=== PATIENT | female | born 1965 | race Caucasian/White ===

== ENCOUNTER 2017-12-06 07:10 | Emergency (ER) | payer BC ==
[2017-12-06 07:31] VITALS: BP 123/78
--- NOTE | 2017-12-06 08:12 | UC ---
Skin Complaint HPI - HPI Summary HPI Summary: has had 1 wek history small bump on lower mid back, over past 3 days it has become red and swollen, very painful, no drainage - History of Current Complaint Chief Complaint: UCSkin Time Seen by Provider: 12/06/17 08:04 Stated Complaint: SKIN ISSUE Hx Obtained From: Patient ?: No Onset/Duration: Gradual Onset Onset Severity: Mild Current Severity: Moderate Pain Intensity: 7 Location: Discrete Character: Swelling, Redness, Painful Aggravating Factor(s): Touch Alleviating Factor(s): Nothing Associated Signs & Symptoms: Positive: Negative Similar Episode/Dx as: abscess - Allergy/Home Medications Allergies/Adverse Reactions: Allergies Allergy/AdvReac Type Severity Reaction Status Date / Time statins Allergy Pain Uncoded 12/06/17 07:20 Home Medications: Home Medications Sertraline* [Zoloft*] 50 mg PO DAILY 12/06/17 [History Confirmed 12/06/17] diphenhydrAMINE HCl [Benadryl Allergy] 25 mg PO BEDTIME PRN 12/06/17 [History Confirmed 12/06/17] Review of Systems Constitutional: Negative Respiratory: Negative Cardiovascular: Negative Musculoskeletal: Negative Neurological: Negative Psychological: Negative Is Patient Immunocompromised?: No All Other Systems Reviewed And Are Negative: Yes PMH/Surg Hx/FS Hx/Imm Hx Previously Healthy: Yes Endocrine History: Dyslipidemia Psychological History: Depression - Surgical History Surgical History: Yes Surgery Procedure, Year, and Place: C SECTION - 1993; ANKLE-Lt Xs2- WEREN'T ABLE TO REMOVE HARDWARE; TONSILECTOMY - Family History Known Family History: Positive: None Negative: Hypertension, Diabetes - Social History Occupation: Employed Full-time Lives: With Family Alcohol Use: None Substance Use Type: None Smoking Status (MU): Current Every Day Smoker Cessation Counseling: Patient Advised to Stop Physical Exam Triage Information Reviewed: Yes Appearance: Well-Appearing, No Pain Distress, Well-Nourished Vital Signs: Initial Vital Signs Temp 98.2 F 12/06/17 07:22 Pulse 81 12/06/17 07:22 Resp 16 12/06/17 07:22 BP 123/78 12/06/17 07:22 Pulse Ox 99 12/06/17 07:22 Vital Signs Reviewed: Yes Respiratory Exam: Normal Cardiovascular Exam: Normal Musculoskeletal Exam: Normal Neurological Exam: Normal Psychological Exam: Normal Skin: Positive: Other - 2cm erythemic, raise, painful mass without fluctuant area or pustule saccral area Course/Dx - Differential Diagnoses - Skin Complaint Differential Diagnoses: Abscess, Cellulitis, MRSA - Diagnoses Provider Diagnoses: skin abscess Discharge - Sign-Out/Discharge Documenting (check all that apply): Patient Departure All imaging exams completed and their final reports reviewed: No Studies - Discharge Plan Condition: Good Disposition: HOME Prescriptions: Sulfamethox/Trimethoprim DS* [Bactrim DS 800/160 TAB*] 1 tab PO BID #20 tab Patient Education Materials: Abscess (ED) Referrals: Willam Dupree MD [Primary Care Provider] - 3 Days (if no better) Additional Instructions: apply warm packs to abscess 3-4 times a day use Hibiclens solution everyday to affected area start antibiotic and take as directed return if you experience fever or chills or worsening symptoms - Billing Disposition and Condition Condition: GOOD Disposition: Home - Attestation Statements Provider Attestation: Per institutional requirements, I have reviewed the chart, however, I was not consulted specifically or made aware of this patient by the midlevel provider. I did not personally evaluate, interact with , or disposition this patient.
== END 2017-12-06 08:30 | disposition home or self-care (01) ==
LOC: UCEAST 07:10
DX: L02.212 Cutaneous abscess of back [any part, except buttock and flank] (principal); F32.9 Major depressive disorder, single episode, unspecified; Z88.8 Allergy status to other drugs, medicaments and biological substances; F17.210 Nicotine dependence, cigarettes, uncomplicated
CPT/HCPCS: 99212; G0463

== ENCOUNTER 2017-12-08 15:30 | Emergency (ER) | payer BC ==
[2017-12-08 16:08] VITALS: BP 109/73
[2017-12-08] MEDS ORDERED: Lidocaine 2% W/EPI 1:100,000* 20 ML MDV INJ ONE (17:07)
[2017-12-08] MEDS ORDERED: Lidocaine 1% MPF wEPI 200,000* 30 ML SDV ONE (17:09)
--- NOTE | 2017-12-08 17:13 | ED ---
Skin Complaint - HPI Summary HPI Summary: 52-year-old female presents for abscess to her sacral area. She was seen at this facility on 12/06/2017 for the same. There was no fluctuance at that time therefore an I&D was not performed. Patient was placed on Bactrim twice a day. Patient presents today reporting that the abscess has come to a head with increased redness and tenderness. Denies fever or chills. - History of Current Complaint Chief Complaint: UCSkin Time Seen by Provider: 12/08/17 16:27 Stated Complaint: ABCESS ON TAILBONE Hx Obtained From: Patient Onset/Duration: Started Days Ago - 5 Timing: Constant Onset Severity: Mild Current Severity: Severe Pain Intensity: 9 Skin Location: Other: - over coccyx Character: Redness, Raised, Painful Aggravating Symptom(s): Touch Alleviating Symptom(s): Nothing Associated Signs & Symptoms: Chills, Tenderness - Allergy/Home Medications Allergies/Adverse Reactions: Allergies Allergy/AdvReac Type Severity Reaction Status Date / Time statins Allergy Pain Uncoded 12/08/17 16:08 PMH/Surg Hx/FS Hx/Imm Hx Endocrine/Hematology History: Denies: Hx Diabetes, Hx Thyroid Disease Cardiovascular History: Denies: Hx Hypertension, Hx Pacemaker/ICD Respiratory History: Denies: Hx Asthma, Hx Chronic Obstructive Pulmonary Disease (COPD) GI History: Reports: Hx Ulcer, Other GI Disorders - STOMACH ULCER History: Denies: Hx Dialysis, Hx Renal Disease Sensory History: Denies: Hx Hearing Aid Psychiatric History: Denies: Hx Panic Disorder - Cancer History Hx Chemotherapy: No Hx Radiation Therapy: No - Surgical History Surgery Procedure, Year, and Place: C SECTION - 1993; ANKLE-Lt Xs2- WEREN'T ABLE TO REMOVE HARDWARE; TONSILECTOMY Hx Anesthesia Reactions: No Infectious Disease History: No Infectious Disease History: Denies: Hx Hepatitis, Hx Human Immunodeficiency Virus (HIV), Traveled Outside the [place] in Last 30 Days - Family History Family History: Noncontributory - Social History Occupation: Employed Full-time Lives: With Family Alcohol Use: None Substance Use Type: Reports: None Smoking Status (MU): Current Every Day Smoker Review of Systems Positive: Chills Positive: Other - See HPI All Other Systems Reviewed And Are Negative: Yes Physical Exam Triage Information Reviewed: Yes Vital Signs On Initial Exam: Initial Vitals Temp Pulse Resp BP Pulse Ox 99.7 F 105 18 109/73 97 12/08/17 16:03 12/08/17 16:03 12/08/17 16:03 12/08/17 16:03 12/08/17 16:03 Vital Signs Reviewed: Yes Appearance: Positive: Well-Appearing, Well-Nourished, Pain Distress - Unable to find comfortable position Skin: Positive: Warm, Dry, Other - 3.5 cm circular area of induration with central fluctuance to sacrum. Erythema extends beyond the margins of induration for total of 8 cm in diameter. Respiratory/Lung Sounds: Positive: Clear to Auscultation, Breath Sounds Present Cardiovascular: Positive: Normal Musculoskeletal: Positive: Normal Psychiatric: Positive: Normal Procedures - Incision and Drainage Midline Sacrum Site: sacrum Anesthesia: Local - Field block performed using 9 ml 2% lidocaine with epi. Good anesthesia was acheived Instrument(s): Scalpel - 1.5 cm incision made in the area of fluctuance. Wound culture obtained. Wound was probed to a depth of 1.5 cm and tunneled 2.5 cm laterally to the left of the sacrum. Loculations were broken up using a forcep. Moderate amount of purulent drainage expressed from wound. Irrigated with copious amount of sterile saline. Packing: Gauze - Wound packed with iodoform guaze. Bulky gauze dressing applied. Diagnostics - Vital Signs Vital Signs Temp Pulse Resp BP Pulse Ox 12/08/17 16:03 99.7 F 105 18 109/73 97 - Laboratory Lab Statement: Any lab studies that have been ordered have been reviewed, and results considered in the medical decision making process. Course/Dx - Course Course Of Treatment: 52 year old female presents with sacral abscess. Seen previously at this facility for same however lesion was without fluctuance therefore I&D defferred. Started on Bactrim DS. Lesion has increased in size and now has central area of fluctuance. I&D was performed and wound was packed. Will have patient continue with Bactrim DS as prescribed pending culture results. She has appointment already scheduled with PCP in 2 days. Warning symptoms reviewed with patient. Verbalizes understanding and agrees with POC. - Differential Diagnoses - Skin Complaint Differential Diagnoses: Abscess - coccyx - Diagnoses Provider Diagnoses: Abscess Discharge - Sign-Out/Discharge Documenting (check all that apply): Patient Departure All imaging exams completed and their final reports reviewed: No Studies - Discharge Plan Condition: Stable Disposition: HOME Patient Education Materials: Abscess (ED) Referrals: Willam Dupree MD [Primary Care Provider] - 2 Days (As scheduled.) Additional Instructions: The numbing medication used during the procedure today will wear off in about 2- 3 hours. He may take an alrk-neg-lhtlyet pain medication such as acetaminophen (Tylenol) or ibuprofen (Advil, Motrin) according to directions as needed for pain. Leave the dressing applied in the clinic in place for the next 24 hours. If there is any bleeding or if it soaks through simply had more cause. After 24 hours he may go ahead and remove this dressing and shower as normal. You should avoid submerging wound under water therefore do not take a baths, soak in a hot tub, or go swimming until this wound is completely healed. Packing was placed inside the wound to keep the wound open and allow it to drain. Do not remove this packing. If the packing falls out do not try to reinsert. Apply a gauze dressing over the wound in order to catch any drainage. You should change this dressing at least once a day for any type becomes wet or soiled. A culture of the wound was performed today. It will take 48-72 hours to get these results back. If his culture suggest the need to be a change in the antibiotic you're taking we will contact you. Continue taking the Bactrim as previously prescribed. Follow-up with your primary care provider in 2 days as scheduled. - Billing Disposition and Condition Condition: STABLE Disposition: Home
--- NOTE | 2017-12-11 15:34 | UC ---
- Progress Note Progress Note: Wound culture grew out 3+ peptostreptococci. Patient was placed on Bactrim DS at initial visit on 12/06/2017 and then had I&D performed on 12/08/2017. Please call patient to see if symptoms are improving as Bactrim does not provide adequate anaerobic coverage. If symptoms are improving with the I&D no further antibiotic is required however may need to be put on antibiotic with anaerobic coverage such as Augmentin or clindamycin. She should have been seen by PCP on 12/10/2017 for follow up. Course/Dx - Diagnoses Provider Diagnoses: Abscess Discharge - Sign-Out/Discharge Documenting (check all that apply): Patient Departure All imaging exams completed and their final reports reviewed: No Studies - Discharge Plan Condition: Stable Disposition: HOME Patient Education Materials: Abscess (ED) Referrals: Willam Dupree MD [Primary Care Provider] - 2 Days (As scheduled.) Additional Instructions: The numbing medication used during the procedure today will wear off in about 2- 3 hours. He may take an ivqt-avp-mcxnyyc pain medication such as acetaminophen (Tylenol) or ibuprofen (Advil, Motrin) according to directions as needed for pain. Leave the dressing applied in the clinic in place for the next 24 hours. If there is any bleeding or if it soaks through simply had more cause. After 24 hours he may go ahead and remove this dressing and shower as normal. You should avoid submerging wound under water therefore do not take a baths, soak in a hot tub, or go swimming until this wound is completely healed. Packing was placed inside the wound to keep the wound open and allow it to drain. Do not remove this packing. If the packing falls out do not try to reinsert. Apply a gauze dressing over the wound in order to catch any drainage. You should change this dressing at least once a day for any type becomes wet or soiled. A culture of the wound was performed today. It will take 48-72 hours to get these results back. If his culture suggest the need to be a change in the antibiotic you're taking we will contact you. Continue taking the Bactrim as previously prescribed. Follow-up with your primary care provider in 2 days as scheduled. - Billing Disposition and Condition Condition: STABLE Disposition: Home
== END 2017-12-08 18:02 | disposition home or self-care (01) ==
LOC: UCEAST 15:30
DX: L05.01 Pilonidal cyst with abscess (principal); Z88.8 Allergy status to other drugs, medicaments and biological substances; F17.200 Nicotine dependence, unspecified, uncomplicated
CPT/HCPCS: 10080; 10160; 87070; 87205; 87640; 87641; 99212; G0463; J2001